=== PATIENT | male | born 1980 | race Caucasian/White ===

== ENCOUNTER → 2018-07-17 15:52 | Outpatient (CLI) | payer BC | END | disposition home or self-care (01) | LOC: D.MRI 15:52 | DX: M25.511 Pain in right shoulder (principal) ==

== ENCOUNTER 2018-09-28 07:40 | Day surgery (SDC) | payer BC ==
[~2018-09-28] VITALS: Ht 170.2 cm; Wt 68.9 kg
[~2018-09-28 07:40] MED LIST: IBUPROFEN200 MG PO
[2018-09-28 08:18] VITALS: BP 111/66; Ht 170.2 cm; Wt 68.9 kg
[2018-09-28] MEDS ORDERED: HYDROCODON-ACE1 EA10 PO (10:58)
--- NOTE | 2018-09-28 12:34 | NUR ---
1234 IV DC'D. CATHETER INTACT. PRESSURE HELD UNTIL BLEEDING STOPPED. BANDAID APPLIED.
--- NOTE | 2018-09-28 17:13 | OP ---
PATIENT NAME: TALI CHANDRA MEDICAL RECORD: [id number] :78 LOCATION:[facility] ADMISSION DATE: SURGEON: SHAHRIAR SAUNDERS MD DATE OF OPERATION: 09/28/2018 PREOPERATIVE DIAGNOSIS: Impingement syndrome of the right shoulder. POSTOPERATIVE DIAGNOSIS: Impingement syndrome of the right shoulder. PROCEDURES: 1. Right shoulder arthroscopy with distal clavicle excision -- 1 cm. 2. Subacromial decompression, arthroscopic right shoulder. SURGEON: Shahriar Saunders MD ANESTHESIA: General. INTRAOPERATIVE COMPLICATIONS: None. SUMMARY OF PATHOLOGIC FINDINGS: The patient had rotator cuff attritional changes; however, no full thickness tearing was noted. Mostly, the patient has substantial amount of subacromial bursitis with inflamed bursal tissue, type 3 acromion with downward sloping and excoriation of the coracoacromial ligament as well as acromioclavicular arthritis. OPERATIVE SUMMARY IN DETAIL: After obtaining the appropriate preoperative orthopedic surgery consent as well as anesthetic consultation, evaluation and clearance, the patient was brought to the operating room and placed on the operating table in supine position. After adequate general laryngeal mask airway was administered, the patient was placed in left lateral decubitus position. All pressure points were well padded to include down leg peroneal pad as well as axillary roll. The patient was held firmly to the operating table using vacuum pack suction system. Right upper extremity and shoulder were then prepped and draped in routine sterile fashion. Arm was held in the [employer] traction boom at 30 degrees of forward flexion, 30 degrees of abduction, 10 pounds of traction laterally. Arthroscopy was established in the glenohumeral joint for posterior portal. Anterior portal was established in the anterior safe interval. Diagnostic arthroscopy showed the patient to have relatively well maintained intraarticular portion with only minimal articular side rotator cuff tearing. Full thickness tearing was noted. Attention was turned to the subacromial space. While in the subacromial space, superolateral portal was created through which the [place] tissue ablation system from [employer] was utilized to denude the undersurface of the acromion and release the coracoacromial ligament. A 5-0 barrel bur was used to perform acromioplasty at the level of the acromioclavicular joint done through a separate anterior arthroscopic portal. Under direct arthroscopic visualization, distal clavicle was excised for 1 cm. Having completed this, attention was turned to complete bursectomy. The patient had substantial amounts of bursal folds that were irritated and inflamed. These were resected anteriorly, laterally, posteriorly and superiorly. Rotator cuff was evaluated and found to have no tearing, but some attritional changes were noted. Having completed this, arthroscopy portals were closed in routine interrupted fashion using 4-0 Prolene. Sterile dressings were applied. The patient was awakened, taken to recovery room in stable condition. All final needle and sponge counts were correct. OPERATIVE REPORT [id number] TALI CHANDRA TRANSINT:[id number] Voice Confirmation ID: [id number] DOCUMENT ID: [id number] CHIP JENKINS, SHAHRIAR DENNEY at 1713 CC: [id number] DICTATION DATE: 09/28/18 1057 OPERATIONS INTELLIGENCE SUPERINTENDENT: 09/28/18 1134 [facility] 09/28/18 [id number] [place] [address]
== END 2018-09-28 13:11 | disposition home or self-care (01) ==
LOC: D.OPS 07:40 → D.PAN 13:15
PROVIDERS: ATTEND Orthopaedic Surgery
DX: M75.41 Impingement syndrome of right shoulder (principal); Z01.812 Encounter for preprocedural laboratory examination